=== PATIENT | male | born 1995 | race Asian ===

== ENCOUNTER 2024-02-11 21:56 | Emergency (ER) | payer OTHER, SELFPAY ==
[2024-02-11 22:04] VITALS: BP 128/85
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
[2024-02-11] MEDS: ADACEL 0.5 ML IM (23:15)
[2024-02-11 23:21] VITALS: BP 119/70
== END 2024-02-11 23:22 | disposition home or self-care (01) ==
LOC: EMR 21:56
PROVIDERS: EMERGENCY PHYSICIAN Emergency Medicine
DX: S61.216A Laceration without foreign body of right little finger without damage to nail, initial encounter (principal); W26.0XXA Contact with knife, initial encounter; Z23 Encounter for immunization
CPT/HCPCS: 99282; 12001; 90471; 90715

== ENCOUNTER 2024-02-13 01:04 | Emergency (ER) | payer OTHER, SELFPAY ==
[2024-02-13 01:11] VITALS: BP 111/83
[2024-02-13 01:38] LABS: COVID-19 Antigen Negative (Negative)
[2024-02-13 06:18] VITALS: BP 105/73
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
[2024-02-13 06:21] VITALS: BMI 27.1
[2024-02-13 07:58] VITALS: BP 121/79
[2024-02-13 08:18] LABS: Urine Albumin Negative (Neg - Trace); Urine Bilirubin Negative (Negative); Urine Character Clear (Clear); Urine Color Yellow; Urine Glucose Negative (Negative); Urine Ketone Negative (Negative); Urine Leukocyte Negative (Negative); Urine Nitrite Negative (Negative); Urine Occult Blood Negative (Negative); Urine Urobilinogen Negative (Neg - 1+); Urine pH 6.5 (5.0-9.0)
[2024-02-13] MEDS: TORADOL 30 MG IV (08:53)
[2024-02-13] MEDS: NSS 1000 IV (08:58)
[2024-02-13 10:18] VITALS: BP 100/66
== END 2024-02-13 10:20 | disposition home or self-care (01) ==
LOC: EMR 01:04
PROVIDERS: Student in an Organized Health Care Education/Training Program; EMERGENCY PHYSICIAN Student in an Organized Health Care Education/Training Program
DX: B34.9 Viral infection, unspecified (principal)
CPT/HCPCS: 99283; 96374; 96361; 71046; 81003; 87502; 87811